=== PATIENT | female | born 2000 | race Caucasian/White ===

== ENCOUNTER 2019-08-15 19:41 | Emergency (ER) | payer BC ==
[~2019-08-15] VITALS: Ht 180.3 cm; Wt 75.0 kg
[2019-08-15 19:52] VITALS: Ht 180.3 cm; Wt 75.0 kg
[2019-08-15] MEDS ORDERED: BIRTH CONTROL (19:52)
[2019-08-15 21:13] VITALS: BP 122/71
== END 2019-08-15 21:14 | disposition home or self-care (01) ==
LOC: D.ER 19:41
DX: S99.921A Unspecified injury of right foot, initial encounter (principal); W19.XXXA Unspecified fall, initial encounter; Y93.67 Activity, basketball; Y92.9 Unspecified place or not applicable